=== PATIENT | male | born 1980 | race African-American/Black ===

== ENCOUNTER 2020-09-23 04:31 | Emergency (ER) | payer OTHER ==
[~2020-09-23] VITALS: Ht 198.1 cm; Wt 93.4 kg
[2020-09-23] MEDS ORDERED: CIPRO500 MG PO (06:10)
== END 2020-09-23 06:33 | disposition home or self-care (01) ==
LOC: ER 04:31
DX: S01.82XA Laceration with foreign body of other part of head, initial encounter (principal); S61.422A Laceration with foreign body of left hand, initial encounter; X99.1XXA Assault by knife, initial encounter; Y93.89 Activity, other specified; Y92.89 Other specified places as the place of occurrence of the external cause; Y99.8 Other external cause status